=== PATIENT | female | born 1940 | race Caucasian/White ===

== ENCOUNTER 2021-10-25 11:57 | Emergency (ER) | payer OTHER, BC ==
[~2021-10-25] VITALS: Ht 165.1 cm; Wt 56.7 kg
[2021-10-25] MEDS ORDERED: LOSARTAN POTAS100 MG PO (12:29)
[2021-10-25] MEDS ORDERED: METOPROLOL SUCC25 MG PO (12:30)
[2021-10-25] MEDS ORDERED: HYDROCHLOROTH12.5 MG PO (12:30)
== END 2021-10-25 14:31 | disposition home or self-care (01) ==
LOC: ER 11:57
DX: S05.32XA Ocular laceration without prolapse or loss of intraocular tissue, left eye, initial encounter (principal); W22.8XXA Striking against or struck by other objects, initial encounter; Y93.89 Activity, other specified; Y92.89 Other specified places as the place of occurrence of the external cause; Y99.8 Other external cause status